=== PATIENT | female | born 1990 | race Caucasian/White ===

== ENCOUNTER 2016-05-10 20:39 | Inpatient (IN) | payer OTHER ==
[~2016-05-10] VITALS: Ht 175.3 cm; Wt 91.4 kg
[~2016-05-10 20:39] MED LIST: LABE100T PO; MAGN400C PO; PREN1TAB73 PO
[2016-05-10] MEDS ORDERED: D5LR 1,000 ML IV SCH (21:14)
[2016-05-10] MEDS ORDERED: ACETAMINOPHEN 500 MG TABLET PO PRN (21:15)
[2016-05-10] MEDS ORDERED: CALCIUM CARBONATE 500mg Chewable TAB PO PRN (21:15)
[2016-05-10] MEDS ORDERED: LIDOCAINE 1% (10mg/ml) 2ml SDV ID PRN (21:15)
[2016-05-10] MEDS ORDERED: MAG-AL + SIM LIQUID 30 ML UDC PO PRN (21:15)
--- OUTSIDE RECORDS SUMMARY | 2016-05-10 21:26 | XMS REPORT | Continuity of Care Document ---
Author Author [facility] Organization [facility] Address Unknown Phone Unavailable Support Name Relationship Address Phone Hernan Bonilla PRS [address] [address] [phone] Allergies, Adverse Reactions, Alerts Substance Reaction Severity Status No Known Drug Allergies Unknown Active Medications Medication Instructions Dosage Effective Dates (start - stop) Status Comments MULTIVITAMIN (unknown strength) - Active BIOTIN (unknown strength) - Active Excedrin Extra Strength 250 mg-250 mg-65 mg tablet - Active Problems Condition Effective Dates (start - stop) Clinical Status Suprvsn of preg w insufficient antenat care, first trimester - Infection oth prt genitl trct in , first trimester - Maternal care for excess growth, first trimester, unsp - Encntr for suprvsn of normal first preg, first trimester - 13 weeks gestation of - Secondary oligomenorrhea Pap Smear Screening, Cervix Irregular Bleeding Active Procedures Procedure Date Wet [place] For Infectious Agents Initial OB Visit No Charge - SPOKE MAKER OB Panel With An HIV Venpnctr fngr/heel/ear stick routne OB Prepayment Agreement Infct antign, chlamydia trac, ampl Neisseria Gonorrhoeae, Amplification Urine Culture Results Test Name Date and Time Measure Units Reference Range Abnormal Flag Comments Panel Description: Hepatitis B virus surface Ag [Presence] in Serum or Plasma by Immunoassay WHITE BLOOD CELL COUNT 14:25:00 9.0 Thousand/uL 3.8-10.8 N RED BLOOD CELL COUNT 14:25:00 3.71 Million/uL 3.80-5.10 L HEMOGLOBIN 14:25:00 11.2 g/dL 11.7-15.5 L HEMATOCRIT 14:25:00 33.0 % 35.0-45.0 L MCV 14:25:00 89.0 fL 80.0-100.0 N MCH 14:25:00 30.1 pg 27.0-33.0 N MCHC 14:25:00 33.9 g/dL 32.0-36.0 N RDW 14:25:00 13.1 % 11.0-15.0 N PLATELET COUNT 14:25:00 185 Thousand/uL 140-400 N MPV 14:25:00 8.6 fL 7.5-11.5 N ABSOLUTE NEUTROPHILS 14:25:00 6795 cells/uL 6271-9389 N ABSOLUTE LYMPHOCYTES 14:25:00 1575 cells/uL 850-3900 N ABSOLUTE MONOCYTES 14:25:00 540 cells/uL 200-950 N ABSOLUTE EOSINOPHILS 14:25:00 63 cells/uL 15-500 N ABSOLUTE BASOPHILS 14:25:00 27 cells/uL 0-200 N NEUTROPHILS 14:25:00 75.5 % N LYMPHOCYTES 14:25:00 17.5 % N MONOCYTES 14:25:00 6.0 % N EOSINOPHILS 14:25:00 0.7 % N BASOPHILS 14:25:00 0.3 % N ANTIBODY SCREEN, RBC W/REFL ID, TITER AND AG 14:25:00 NO ANTIBODIES DETECTED N Reference range No antibodies detected This assay is a screening test for the detection of red blood cell antibodies. The test is not to be used for pretransfusion screening or for the medical management of an alloimmunized . ABO GROUP 14:25:00 B RH TYPE 14:25:00 RH(D) POSITIVE RPR (DX) W/REFL TITER AND CONFIRMATORY TESTING 14:25:00 NON- REACTIVE NON-REACTIVE N HEPATITIS B SURFACE ANTIGEN 14:25:00 NON-REACTIVE NON- REACTIVE N RUBELLA ANTIBODY (IGG) 14:25:00 3.36 N Value Interpretation ----- < or= 0.90 Not consistent with Immunity 0.91-1.09 Equivocal > or=1.10 Consistent with Immunity The presence of rubella IgG antibody suggests immunization or past or current infection withrubella virus.Test performed at [facility] [place] [address]Tplovhxi: COREY LONDONO DO,MPH Panel Description: HIV 1/2 ANTIGEN/ANTIBODY,FOURTH GENERATION W/RFL HIV AG/AB, 4TH GEN 14:25:00 NON-REACTIVE NON-REACTIVE N HIV -1 antigen and HIV-1/HIV-2 antibodies were notdetected. There is no laboratory evidence of HIVinfection. PLEASE NOTE: This information has been disclosed toyou from records whose confidentiality may beprotected by state law. If your state requires suchprotection, then the state law prohibits you frommaking any further disclosure of the informationwithout the specific written consent of the personto whom it pertains, or as otherwise permitted by law.A general authorization for the release of medical orother information is NOT sufficient for this purpose. For additional information please refer tohttp:// education.[employer]/faq/CXX991(This link is being provided for informational/educational purposes only.) The performance of this assay has not been clinicallyvalidated in patients less than 2 years old. REPORT COMMENT: FASTING:NOTest performed at [facility] [facility] [address]Gtniafqy: COREY LONDONO DO,MPH Panel Description: CULTURE, URINE, ROUTINE CULTURE, URINE, ROUTINE 14:30:00 SEE NOTE CULTURE, URINE, ROUTINE MICRO NUMBER: [id number] TEST STATUS: FINAL SPECIMEN SOURCE: URINE, CLEAN CATCH SPECIMEN QUALITY: ADEQUATE RESULT: No GrowthREPORT COMMENT:RFASTING:UNKNOWNTest performed at [facility] [place] [address]Izrcmkyc: COREY LONDONO DO,MPH Panel Description: Chlamydia trachomatis DNA [Presence] in Unspecified specimen by Probe and target amplification method CHLAMYDIA TRACHOMATIS RNA, TMA 14:31:00 NOT DETECTED NOT DETECTED N NEISSERIA GONORRHOEAE RNA, TMA 14:31:00 NOT DETECTED NOT DETECTED N [id number] 14:31:00 SEE NOTE This test was performed using the APTIMA COMBO2 Assay([employer] The analytical performance characteristics of this assay, when used to test SurePath specimens havebeen determined by [employer]. REPORT COMMENT:FASTING:UNKNOWNTest performed at [facility] [id number] [place] [address]Jkunppvg: COREY LONDONO DO,MPH Advance Directives Directive Yes / No Effective Date File Name Unknown Encounters Encounter Description Practice Location Reason(s) For Visit Diagnoses Date Provider Care Team Members [facility], [address], [place], [place], [id number], [place] tel: [phone] Noam Suprvsn of preg w insufficient antenat care, first trimesterInfection oth prt genitl trct in , first trimesterMaternal care for excess growth, first trimester, unspEncntr for suprvsn of normal first preg, first [id number] weeks gestation of Mihai Alexandra. [address] [place] [address] [address], [place], [place], [id number], [place]. tel:[phone] [facility], [address], [place], [place], [address], [place] tel: [phone] Noam Secondary oligomenorrheaPap Smear Screening, Cervix Mihai [address] Ale[address] Hollis, [place], [place], [address], [place]. tel:[phone] Family History Family Member Diagnosis Age At Onset No family history of Kidney Disease No family history of Venous Thrombosis Paternal Grandfather Colon Cancer No family history of Thyroid Disorder Maternal Grandmother Cardiovascular Disease No family history of Uterine Cancer No family history of Pulmonary Embolism No family history of Breast Cancer No family history of Epilepsy No family history of Lung Disease No family history of Stroke No family history of Ovarian Cancer No family history of Hypertension No family history of Osteoporosis No family history of Diabetes Immunizations Vaccine Date Status Comments Unknown Payers Payer name Insurance type Covered democrat ID Authorization(s) [employer] CI [id number] Social History Type Description Quantity Date Captured Alcohol Use Details Caffeine Use Details coffee 2 cups per day Tobacco Use Status Never smoked tobacco Smoking Status Never smoker Vital Signs Date / Time: Height Weight BMI Pulse Rate Blood Pressure Temperature Respiratory Rate Body Surface Area Head Circumference BMI percentile /14:12:00 164.10 lbs 24.06 kg/meter(2) 132/75 mm[Hg] Chief Complaint And Reason For Visit Unknown Chief Complaint And Reason For Visit Reason For Referral Reason For Referral Unknown Plan Of Care Date Type Action Status Appointment Isabell Bonilla BOOKED Appointment Isabell Bonilla BOOKED Future Order: Lab Order Pap Smear With HPV Reflex If ASCUS ( [id number]) Ordered Date Type Problem Goal Intervention Status Start Date Unknown. History Of Present Illness Encounter Date Complaint History Of Present Illness This patient has no known history of present illness Functional Status Encounter Date Functional Assessment Cognitive Assessment Unknown Medications Administered Medication Instructions Dosage Effective Dates (start - stop) Status Comments Drug Treatment Unknown Instructions Date Instruction Additional Information OB Acog Docs HIV and other routine tests risk factors identified by history anticipated course of care nutrition and weight gain counseling, special diet toxoplasmosis precautions (cats / raw meat) sexual activity exercise indications for ultrasound influenza vaccine environmental / work hazards travel tobacco (ask, advise, assess, assist and arrange) alcohol illicit / recreational drugs use of any medications (including supplements, vitamins, herbs, OTC drugs) smoking counseling domestic violence seat belt use childbirth classes / hospital facilities hospital registration Nov-02-2016 genetic testing new ob handbook Zika virus assessment & precautions
--- OUTSIDE RECORDS SUMMARY | 2016-05-10 21:26 | XMS REPORT | Continuity of Care Document ---
Author Author [facility] Organization [facility] Address Unknown Phone Unavailable Support Name Relationship Address Phone Hernan Bonilla PRS [address] [address] [phone] Allergies, Adverse Reactions, Alerts Substance Reaction Severity Status No Known Drug Allergies Unknown Active Medications Medication Instructions Dosage Effective Dates (start - stop) Status Comments VITAMINS (unknown strength) take 1 tablet by oral route every day - Active labetalol 100 mg tablet take 1 tablet by oral route every day 100 MG - Active Problems Condition Effective Dates (start - stop) Clinical Status Supraventricular tachycardia - Encntr for suprvsn of normal first preg, second trimester - 27 weeks gestation of - Secondary oligomenorrhea Pap Smear Screening, Cervix Suprvsn of preg w insufficient antenat care, first trimester - Infection oth prt genitl trct in , first trimester - Maternal care for excess growth, first trimester, unsp - Encntr for suprvsn of normal first preg, first trimester - 13 weeks gestation of - Suprvsn of preg w insufficient antenat care, second tri - Encntr for suprvsn of normal first preg, second trimester - 17 weeks gestation of - Encntr for suprvsn of normal first preg, second trimester - 24 weeks gestation of - Encntr for suprvsn of normal first preg, third trimester - 30 weeks gestation of - Irregular Bleeding Active Procedures Procedure Date Unknown Results Test Name Date and Time Measure Units Reference Range Abnormal Flag Comments Unknown Advance Directives Directive Yes / No Effective Date File Name Unknown Encounters Encounter Description Practice Location Reason(s) For Visit Diagnoses Date Provider Care Team Members [facility], [address], [place], [id number], tel: [phone] Noam Encntr for suprvsn of normal first preg, third [id number] weeks gestation of Mihai Alexandra. [address] [place] [address] Ale[address] [place], [id number], [place]. tel:[phone] Referring Provider: Nasrin Paez [address] [place] [address] Dr [address], [place], [address] [place] [address]. tel:[phone] [facility] [address], [place], [id number], tel: [phone] Noam Mihai Alexandra. [address] [place] [address] [address], [place], [place], [address] [place] [address], [place]. tel:[phone] [facility] [address], [place], [address], [place] tel: [phone] Noam Supraventricular tachycardiaEncntr for suprvsn of normal first preg, second [id number] weeks gestation of Mihai Alexandra. [address] [place] [address] [address], [place], [place], [address], [place]. tel:[phone] [facility], [address], [place], [id number], [place] tel: [phone] Noam Mihai Alexandra. [address] [place] [address] [address], [place], [place], [address], [place]. tel:[phone] [facility] [address], [place], [address], [place] tel: [phone] Noam Encntr for suprvsn of normal first preg, second [id number] weeks gestation of Mihai Alexandra. [address] [place] [address] [address] [place], [address], [place]. tel:[phone] Referring Provider: Nasrin Paez [address] [place] [address] oNam Love [place], [id number]. tel:[phone] [facility], [address], [place], [place], [id number], [place] tel: [phone] Noam Ultrasound Suprvsn of preg w insufficient antenat care , second triEncntr for suprvsn of normal first preg, second [id number] weeks gestation of Holmannamaria Alexandra. [address] [place] [address] [address] , [place], [place], [id number], [place]. tel:[phone] [facility], [address], [place], [place], [address], [place] tel: [phone] Noam Suprvsn of preg w insufficient antenat care, first trimesterInfection oth prt genitl trct in , first trimesterMaternal care for excess growth, first trimester, unspEncntr for suprvsn of normal first preg, first [id number] weeks gestation of Holmannamaria Alexandra. [address] [place] [address] [address], [place], [place], [address], [place]. tel:[phone] [facility], [address], [place], [place], [address], [place] tel: [phone] Noam Secondary oligomenorrheaPap Smear Screening, Cervix Mihai Alexandra. [address] [place] [address] [address], [place], [place], [address], [place]. tel:[phone] Family History Family Member Diagnosis Age At [...] of Diabetes Immunizations Vaccine Date Status Comments Tdap completed Source: New Immunization Record Influenza, injectable, quadrivalent, preservative free, 3 yrs or older 2015 completed Source: New Immunization Record Payers Payer name Insurance type Covered green party ID Authorization(s) A[employer] Select CI [id number] A[employer] Select CI [id number] [employer] Select CI [id number] Social History Type Description Quantity Date Captured Unknown Vital Signs Date / Time: Height Weight BMI Pulse Rate Blood Pressure Temperature Respiratory Rate Body Surface Area Head Circumference BMI percentile Unknown Chief Complaint And Reason For Visit Unknown Chief Complaint And Reason For Visit Reason For Referral Reason For Referral Unknown Plan Of Care Date Type Action Status Appointment IreneIsabell ramos BOOKED Future Order: Lab Order Pap Smear With HPV Reflex If ASCUS ( [id number]) Ordered Future Order: Radiology Order Complete OB Ultrasound > 14 Weeks ( [id number]) Ordered Date Type Problem Goal Intervention Status [...] childbirth classes / hospital facilities hospital registration genetic testing new ob handbook Zika virus assessment & precautions
--- OUTSIDE RECORDS SUMMARY | 2016-05-10 21:26 | XMS REPORT | Continuity of Care Document ---
Author Author [facility] Organization [facility] Address Unknown Phone Unavailable Care Team Providers Care Broadcast Traffic Coordinator Name Role Phone Trell Torres MD Primary Care Physician Unavailable Allergies, Adverse Reactions, Alerts Substance Reaction Severity Status No Known Drug Allergies Unknown Active Medications Medication Instructions Dosage Effective Dates (start - stop) Status Comments magnesium 250 mg tablet one tablet BID for restless feet - Active labetalol 100 mg tablet take 1 tablet by oral route 2 times every day 100 MG - Active Prestidigitator Dr Sy IRON (unknown strength) take 1 tablet by oral route 2 times every day - Active VITAMINS (unknown strength) take 1 tablet by oral route every day - Active Problems Condition Effective Dates (start - stop) Clinical Status Encntr for suprvsn of normal first preg, third trimester - 36 weeks gestation of - Supraventricular tachycardia - Encntr for suprvsn of normal first preg, second trimester - 27 weeks gestation of - Supraventricular tachycardia - Encntr for suprvsn of normal first preg, third trimester - 32 weeks gestation of - Encntr for suprvsn of normal first preg, third trimester - 37 weeks gestation of - Secondary oligomenorrhea Pap Smear Screening, Cervix Suprvsn of preg w insufficient antenat care, first trimester - Encntr for suprvsn of normal first preg, first trimester - Infection oth prt genitl trct in , first trimester - Maternal care for excess growth, first trimester, unsp - 13 weeks gestation of - Suprvsn of preg w insufficient antenat care, second tri - Encntr for suprvsn of normal first preg, second trimester - 17 weeks gestation of - Encntr for suprvsn of normal first preg, second trimester - 24 weeks gestation of - Encntr for suprvsn of normal first preg, third trimester - 34 weeks gestation of - Encntr for suprvsn of normal first preg, third trimester - 38 weeks gestation of - 30 weeks gestation of - Encntr for suprvsn of normal first preg, third trimester - Irregular Bleeding Active Procedures Procedure Date OB Visit No Charge Cult, pathgnc orgnsm, screen Results Test Name Date and Time Measure Units Reference Range Abnormal Flag Comments Panel Description: STREPTOCOCCUS, GROUP B CULTURE STREPTOCOCCUS, GROUP B CULTURE 15:15:00 SEE NOTE STREPTOCOCCUS, GROUP B CULTURE MICRO NUMBER: [id number] TEST STATUS: FINAL SPECIMEN SOURCE: VAGINAL/ANORECTAL SPECIMEN QUALITY: ADEQUATE RESULT: No group B Streptococcus isolatedREPORT COMMENT:FASTING: UNKNOWNTest performed at [id number] [place] [address]Qmvbyevj: COREY LONDONO DO,MPH Advance Directives Directive Yes / No Effective Date File Name Unknown Encounters Encounter Description Practice Location Reason(s) For Visit Diagnoses Date Provider Care Team Members [facility], [address], [place], [place], [id number], [place] tel: [phone] Noam Encntr for suprvsn of normal first preg, third [id number] weeks gestation of Mihai [address], [place], [id number], [place]. tel:[phone] [facility], [address] [place] [address], [id number], [place] tel: [phone] Noam Encntr for suprvsn of normal first preg, third [id number] weeks gestation of Mihai Alexandra. [address] [place] [address] [address], [place], [address], [place]. tel:[phone] [facility], [address], [place], [address], [place] tel: [phone] Noam Encntr for suprvsn of normal first preg, third [id number] weeks gestation of Mihai Alexandra. [address] [place] [address] [address]is, [place], [address], [place]. tel:[phone] [facility], [address], [place], [address], [place] tel: [phone] Noam Encntr for suprvsn of normal first preg, third weeks gestation of Mihai Alexandra. [address] [place] [address] [address], [place], [place], [address], [place]. tel:[phone] [facility], [address], [place], [address], [place] tel: [phone] Noam Supraventricular tachycardiaEncntr for suprvsn of normal first preg, third [id number] weeks gestation of Mihai Alexandra. [address] [place] [address] [address], [place], [address], [place]. tel:[phone] [facility], [address], [place], [address], [place] tel: [phone] Noam 30 weeks gestation of pregnancyEncntr for suprvsn of normal first preg, third trimester Mihai Alexandra. [address] [place] [address] [address], [place], [address], [place]. tel:[phone] Referring Provider: Nasrin Paez [address] [place] [address] Dr Ovalle, [place], [address]. tel:[phone] [facility], [address], [place], [place], [address], [place] tel: [phone] Noam Supraventricular tachycardiaEncntr for suprvsn of normal first preg, second weeks gestation of Mihai Alexandra. [address] [place] [address] [address], [place], [place], [address], [place]. tel:[phone] [facility], [address], [place], [place], [address], [place] tel: [phone] Noam Encntr for suprvsn of normal first preg, second [id number] weeks gestation of Mihai Alexandra. [address] [place] [address] [address], [place], [place], [address], [place]. tel:[phone] Referring Provider: Nasrin Paez, [address] [place] [address] Dr [address], [place], [place], [address]. tel:[phone] [facility], [address], [place], [address], [place] tel: [phone] Noam Ultrasound Suprvsn of preg w insufficient antenat care , second triEncntr for suprvsn of normal first preg, second [id number] weeks gestation of Mihai Alexandra. [address] [place] [address] [address] , [place], [place], [address], [place]. tel:[phone] [facility], [address], [place], [place], [address], [place] tel: [phone] Noam Suprvsn of preg w insufficient antenat care, first trimesterEncntr for suprvsn of normal first preg, first trimesterInfection oth prt genitl trct in , first trimesterMaternal care for excess growth, first trimester, unsp13 weeks gestation of Mihai Alexandra. [address] [place] [address] [address], [place], [place], [address], [place]. tel:[phone] [facility], [address], [place], [place], [address], [place] tel: [phone] Noam Secondary oligomenorrheaPap Smear Screening, Cervix Mihai Alexandra. [address] [place] [address] [address], [place], [id number], [place]. tel:[phone] Family History Family Member Diagnosis Age At [...] Record Payers Payer name Insurance type Covered alliance party ID Authorization(s) Aetna Select CI [id number] A[employer] Select CI [id number] [employer] CI [id number] Social History Type Description Quantity Date Captured Alcohol Use Details Caffeine Use Details Unknown Tobacco Use Status Smoking Status Never smoker Vital Signs Date / Time: Height Weight BMI Pulse Rate Blood Pressure Temperature Respiratory Rate Body Surface Area Head Circumference BMI percentile 2:51 PM 197.50 lbs 28.91 kg/meter(2) 110/67 mm[Hg] 3:10 PM 197.54 lbs 28.92 kg/meter(2) 110/67 mm[Hg] Chief Complaint And Reason For Visit Unknown Chief Complaint And Reason For Visit Reason For Referral Reason For Referral Unknown Plan Of Care Date Type Action Status Appointment Isabell Bonilla BOOKED Future Order: Lab Order Pap Smear With HPV Reflex If ASCUS ( [id number]) Ordered Future Order: Radiology Order Complete OB Ultrasound > 14 Weeks ( [id number]) Ordered Date Type Problem Goal Intervention Status Start Date Unknown. History Of Present Illness Encounter Date Complaint History Of Present Illness This patient has no known history of present illness Functional Status Encounter Date Functional Assessment Cognitive Assessment Unknown Medications Administered Medication Instructions Dosage Effective Dates (start - stop) Status Comments Drug Treatment Unknown Instructions Date Instruction Additional Information labor signs group B strep screening OB Acog Docs HIV and other routine [...]
--- OUTSIDE RECORDS SUMMARY | 2016-05-10 21:27 | XMS REPORT | Continuity of Care Document ---
Author Author [facility] [place] [facility] [place] Address Unknown Phone Unavailable Support Name Relationship Address Phone Hernan Bonilla PRS [address] [address] [phone] Allergies, Adverse Reactions, Alerts Substance Reaction Severity [...] trimester - 24 weeks gestation of - Irregular Bleeding Active Procedures Procedure Date Unknown Results Test Name Date and Time Measure Units Reference Range Abnormal Flag Comments Unknown Advance Directives Directive Yes / No Effective Date File Name Unknown Encounters Encounter Description Practice Location Reason(s) For Visit Diagnoses Date Provider Care Team Members [facility], [address], [place], [place], [address], [place] tel: [phone] Noam Supraventricular tachycardiaEncntr for suprvsn of normal first preg, second weeks gestation of Mihai Alexandra. [address] [place] [address] Alec Hollis, [place], [place], [address], [place]. tel:[phone] [facility], [address], [place], [address], [place] tel: [phone] Noam Mihai Alexandra. [address] [place] [address] Alec Hollis, [place], [place], [address], [place]. tel:[phone] [facility] In [facility], [address], [place], [address], [place] tel: [phone] Noam Mihai Alexandra. [address] [place] [address] Alec Hollis, [place], [place], [address], [place]. tel:[phone] [facility] In [facility] [place], [address], [place], [address], [place] tel: [phone] Noam Encntr for suprvsn of normal first preg, second [id number] weeks gestation of Mihai Alexandra. [address] [place] [address] Alec Hollis, [place], [place], [address], [place]. tel:[phone] Referring Provider: Nasrin Paez [address] [place] [address] Dr Ovalle, [place], [place], [address]. tel:[phone] [facility] [place], [address], [place], [address], [place] tel: [phone] Noam Ultrasound Suprvsn of preg w insufficient antenat care , second triEncntr for suprvsn of normal first preg, second [id number] weeks gestation of Mihai Alexandra. [address] [place] [address] Alec Hollis , [place], [place], [address], [place]. tel:[phone] [facility] [place], [address], [place], [address], [place] tel: [phone] Noam Suprvsn of preg w insufficient antenat care, first trimesterInfection oth prt genitl trct in , first trimesterMaternal care for excess growth, first trimester, unspEncntr for suprvsn of normal first preg, first [id number] weeks gestation of Holmannamaria Alexandra. [address] [place] [address] Alec Hollis, [place], [place], [address], [place]. tel:[phone] [facility], [address], [place], [place], [address], [place] tel: [phone] Noam Secondary oligomenorrheaPap Smear Screening, Cervix Holm Nasrin. [address] [place] [address] Alec Hollis, [place], [place], [address], [place]. tel:[phone] Family History Family Member Diagnosis Age At [...] of Diabetes Immunizations Vaccine Date Status Comments Influenza, injectable, quadrivalent, preservative free, 3 yrs or older 2015 completed Source: New Immunization Record Payers Payer name Insurance type Covered libertarian ID Authorization(s) Aet[employer] Select CI [id number] Aet[employer] CI [id number] Social History Type Description Quantity Date Captured [...] Complete OB Ultrasound > 14 Weeks ( [address]48) Ordered Date Type Problem Goal Intervention Status [...]
--- OUTSIDE RECORDS SUMMARY | 2016-05-10 21:27 | XMS REPORT | Continuity of Care Document ---
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 [address] [place] [place] [address] Alec Hollis, [place], [place], [address], [place]. tel:[phone] [facility], [address], [place], [place], [address], [place] tel: [phone] Noam Supraventricular tachycardiaEncntr for suprvsn of normal first preg, third [id number] weeks gestation of Mihai Alexandra. [address] [place] [place] [address] Alec Hollis, [place], [place], [address], [place]. tel:[phone] [facility], [address], [place], [place], [address], [place] tel: [phone] Noam Encntr for suprvsn of normal first preg, third [id number] weeks gestation of Mihai Alexandra. [address] [place] [place] [address] Alec Hollis, [place], [place], [address], [place]. tel:[phone] Referring Provider: Nasrin Paez [address] [place] [address] Dr Ovalle, [place], [place], [address]. tel:[phone] [facility], [address], [place], [place], [address], [place] tel: [phone] Noam Supraventricular tachycardiaEncntr for suprvsn of normal first preg, second [id number] weeks gestation of Mihai Alexandra. [address] [place] [place] [address] Alec Hollis, [place], [place], [address], [place]. tel:[phone] [facility], [address], [place], [place], [address], [place] tel: [phone] Noam Mihai Alexandra. [address] [place] [place] [address] Alec Hollis, [place], [place], [address], [place]. tel:[phone] [facility], [address], [place], [place], [address], [place] tel: [phone] Noam Encntr for suprvsn of normal first preg, second [id number] weeks gestation of Mihai Alexandra. [address] [place] [address] Alec Hollis, [place], [place], [address], [place]. tel:[phone] Referring Provider: Nasrin Paez [address] [place] [address] Dr Ovalle, [place], [place], [address]. tel:[phone] [facility], [address], [place], [place], [address], [place] tel: [phone] Noam Ultrasound Suprvsn of preg w insufficient antenat care , second triEncntr for suprvsn of normal first preg, second [id number] weeks gestation of Mihai Alexandra. [address] [place] [address] Alec Hollis , [place], [place], [address], [place]. tel:[phone] [facility], [address], [place], [place], [address], [place] tel: [phone] Noam Suprvsn of preg w insufficient antenat care, first trimesterInfection ot prt genitl trct in , first trimesterMaternal care for excess growth, first trimester, unspEncntr for suprvsn of normal first preg, first [id number] weeks gestation of Mihai Alexandra. [address] [place] [address] Alec Hollis, [place], [place], [address], [place]. tel:[phone] [facility] [address], [place], [place], [address], [place] tel: [phone] Noam Secondary oligomenorrheaPap Smear Screening, Cervix [address] Alec Hollis [address], [place], [place], [address], [place]. tel:[phone] Family History Family Member Diagnosis Age At [...] Record Payers Payer name Insurance type Covered democrat ID Authorization(s) Aetna Select CI [id number] Aet[employer] Select CI [id number] A[employer] CI [id number] Social History Type Description Quantity Date Captured Alcohol Use Details Caffeine Use Details coffee 2 cups per day Tobacco Use Status Never smoked tobacco Smoking Status Never smoker Vital Signs Date / Time: Height Weight BMI Pulse Rate Blood Pressure Temperature Respiratory Rate Body Surface Area Head Circumference BMI percentile 4:55 PM 190.60 lbs 27.90 kg/meter(2) 133/69 mm[Hg] Chief Complaint And Reason For Visit Unknown Chief Complaint And Reason For Visit Reason For Referral Reason For Referral Unknown Plan Of Care Date Type Action Status Appointment Isabell Bonilla BOOKED Appointment Isabell Bonilla BOOKED Appointment Isabell Bonilla BOOKED Appointment Isabell Bonilla BOOKED Future Order: Lab Order Pap Smear With HPV Reflex If ASCUS ( [id number]) Ordered Future Order: Radiology Order Complete OB Ultrasound > 14 Weeks ( [id number]) Ordered Date Type Problem Goal Intervention Status [...]
--- OUTSIDE RECORDS SUMMARY | 2016-05-10 21:27 | XMS REPORT | Continuity of Care Document ---
Author Author [facility] Organization [facility] Address Unknown Phone Unavailable Support Name Relationship Address Phone Hernan Bonilla PRS [address] [place] [facility] [place] [address] [phone] Allergies, Adverse Reactions, Alerts Substance Reaction Severity Status No Known Drug Allergies Unknown Active Medications Medication Instructions Dosage Effective Dates (start - stop) Status Comments labetalol 100 mg tablet take 1 tablet by oral route every day 100 MG - Active MULTIVITAMIN (unknown strength) - Active BIOTIN (unknown strength) - Active Problems Condition Effective Dates (start - stop) Clinical Status Suprvsn of preg w insufficient antenat care, second tri - Encntr for suprvsn of normal first preg, second trimester - 17 weeks gestation of - Suprvsn of preg w insufficient antenat care, first trimester - Infection oth prt genitl trct in , first trimester - Maternal care for excess growth, first trimester, unsp - Encntr for suprvsn of normal first preg, first trimester - 13 weeks gestation of - Secondary oligomenorrhea Pap Smear Screening, Cervix Encntr for suprvsn of normal first preg, second trimester - 24 weeks gestation of - Irregular Bleeding Active Procedures Procedure Date Ultrasound exam of preg uterus, complete Results Test Name Date and Time Measure Units Reference Range Abnormal Flag Comments Unknown Advance Directives Directive Yes / No Effective Date File Name Unknown Encounters Encounter Description Practice Location Reason(s) For Visit Diagnoses Date Provider Care Team Members [facility], [address], [place], [id number], [place] tel: [phone] [place] Mihai Williamson [address] [place] [address] Alec Hollis, [place], [place], [address], [place]. tel:[phone] [facility] [address], [place], [address], [place] tel: [phone] Noam Encntr for suprvsn of normal first preg, second weeks gestation of Mihai Williamson [address] [place] [address] Alec Hollis, [place], [place], [address], [place]. tel:[phone] Referring Provider: Nasrin Paez [address] [place] [address] Dr Ovalle, [place], [place], [address]. tel:[phone] [facility], [address], [place], [address], [place] tel: [phone] Noam Ultrasound Suprvsn of preg w insufficient antenat care , second triEncntr for suprvsn of normal first preg, second [id number] weeks gestation of Mihai Alexandra. [address] [place] [address] Alec Hollis , [place], [place], [address], [place]. tel:[phone] [facility], [address], [place], [address], [place] tel: [phone] Noam Suprvsn of preg w insufficient antenat care, first trimesterInfection oth prt genitl trct in , first trimesterMaternal care for excess growth, first trimester, unspEncntr for suprvsn of normal first preg, first exftylbej55 weeks gestation of Mihai Alexandra. [address] [place] [address] Alec Hollis, [place], [place], [address], [place]. tel:[phone] Associates In [facility] [address], [place], [address], [place] tel: [phone] [place] Secondary oligomenorrheaPap Smear Screening, Cervix Mihai Williamson [address] [place] [address] Alec Hollis [place], [address], [place]. tel:[phone] Family History Family Member Diagnosis Age At [...] Covered democrat ID Authorization(s) Aet[employer] Select CI [id number] Aetna Select CI [id number] Social History Type Description Quantity Date Captured [...] Status Appointment Isabell Bonilla BOOKED Future Order: Radiology Order Complete OB Ultrasound > 14 Weeks ( [id number]) Ordered Future Order: Lab Order Pap Smear With [...]
--- OUTSIDE RECORDS SUMMARY | 2016-05-10 21:27 | XMS REPORT | Continuity of Care Document ---
Author Author [facility] Organization [facility] Address Unknown Phone Unavailable Care Team Providers Care Parole Hearing Officer Name Role Phone Trell Torres MD Primary [...] trimester - 34 weeks gestation of - Supraventricular tachycardia - Encntr for suprvsn of normal first preg, second trimester - 27 weeks gestation of - Supraventricular tachycardia - Encntr for suprvsn of normal first preg, third trimester - 32 weeks gestation of - Secondary oligomenorrhea Pap [...] trimester - 30 weeks gestation of - Encntr for suprvsn of normal first preg, third trimester - 36 weeks gestation of - Irregular Bleeding Active Procedures Procedure Date OB Visit No Charge Results Test Name Date and Time Measure Units Reference Range Abnormal Flag Comments Unknown Advance Directives Directive Yes / No Effective Date File Name Unknown Encounters Encounter Description Practice Location Reason(s) For Visit Diagnoses Date Provider Care Team Members [facility] [place], [address], [place], [address], tel: [phone] No[place] Encntr for suprvsn of normal first preg, third [id number] weeks gestation of Mihai Alexandra. [address] [place] [address] Alec Hollis, [place], [place], [address], [place]. tel:[phone] [facility] [place], [address], [place], [address], [place] tel: [phone] No[place] Encntr for suprvsn of normal first preg, third [id number] weeks gestation of Mihai Alexandra. [address] [place] [address] Alec Hollis, [place], [place], [address], [place]. tel:[phone] [facility] [place], [address], [place], [place], [address], [place] tel: [phone] Noam Supraventricular tachycardiaEncntr for suprvsn of normal first preg, third [id number] weeks gestation of Mihai Alexandra. [address] [place] [address] Alec Hollis, [place], [place], [address], [place]. tel:[phone] [facility] [place], [address], [place], [address], [place] tel: [phone] No[place] Encntr for suprvsn of normal first preg, third ojfafltqz15 weeks gestation of Mihai Alexandra. [address] [place] [address] Alec Hollis [place], [place], [address], [place]. tel:[phone] Referring Provider: Nasrin Paez [address] [place] [address] Dr Ovalle, [place], [place], [address]. tel:[phone] [facility], [address], [place], [place], [address], [place] tel: [phone] Noam Supraventricular tachycardiaEncntr for suprvsn of normal first preg, second weeks gestation of Mihai Alexandra. [address] [place] [address] Alec Hollis, [place], [place], [address], [place]. tel:[phone] [facility], [address], [place], [place], [address], [place] tel: [phone] No[place] Mihai Alexandra. [address] [place] [address] Alec Hollis, [place], [place], [address], [place]. tel:[phone] [facility], [address], [place], [place], [address], [place] tel: [phone] Noam Encntr for suprvsn of normal first preg, second [id number] weeks gestation of Mihai Alexandra. [address] [place] [address] Alec Hollis [place], [place], [address], [place]. tel:[phone] Referring Provider: Nasrin Paez [address] [place] [address] Dr Ovalle, [place], [place], [address]. tel:[phone] [facility], [address], [place], [place], [address], [place] tel: [phone] Noam Ultrasound Suprvsn of preg w insufficient antenat care , second triEncntr for suprvsn of normal first preg, second [id number] weeks gestation of Mhiai Alexandra. [address] [place] [address] Alec Hollis [place], [place], [address], [place]. tel:[phone] [facility], [address], [place], [place], [address], [place] tel: [phone] Noam Suprvsn of preg w insufficient antenat care, first trimesterInfection oth prt genitl trct in , first trimesterMaternal care for excess growth, first trimester, unspEncntr for suprvsn of normal first preg, first [id number] weeks gestation of Mihai Alexandra. [address] [place] [address] Alec Hollis, [place], [place], [address], [place]. tel:[phone] [facility], [address], [place], [place], [address], [place] tel: [phone] Noam Secondary oligomenorrheaPap Smear Screening, Cervix Mihai Alexandra. [address] [place] [address] Alec Hollis, [place], [place], [address], [place]. tel:[phone] Family History Family Member Diagnosis Age At [...] Record Payers Payer name Insurance type Covered republican ID Authorization(s) Aetna Select CI [id number] Aetna Select CI [id number] A[employer] Select CI [id number] Social History Type Description Quantity Date Captured Alcohol Use Details Caffeine Use Details coffee 2 cups per day Tobacco Use Status Never smoked tobacco Smoking Status Never smoker Vital Signs Date / Time: Height Weight BMI Pulse Rate Blood Pressure Temperature Respiratory Rate Body Surface Area Head Circumference BMI percentile 8:45 AM 196.40 lbs 28.75 kg/meter(2) 129/75 mm[Hg] Chief Complaint And Reason For Visit [...] Complete OB Ultrasound > 14 Weeks ( 77012) Ordered Date Type Problem Goal Intervention Status [...]
--- OUTSIDE RECORDS SUMMARY | 2016-05-10 21:27 | XMS REPORT | Continuity of Care Document ---
Author Author [facility] [place] Organization [facility] Address Unknown Phone Unavailable Support Name Relationship Address Phone Hernan Bonilla PRS [address] [address] [phone] Allergies, Adverse Reactions, Alerts Substance Reaction Severity [...] trimester - 24 weeks gestation of - Suprvsn of preg [...] trimester - 17 weeks gestation of - Irregular Bleeding Active Procedures Procedure Date Immuniz admnin, 1 vac, sngl/combo 19 Yrs + Flu Vaccine - Quadrivalent OB Visit No Charge Results Test Name Date and Time Measure Units Reference Range Abnormal Flag Comments Unknown Advance Directives Directive Yes / No Effective Date File Name Unknown Encounters Encounter Description Practice Location Reason(s) For Visit Diagnoses Date Provider Care Team Members [facility], [address], [place], [place], [address], [place] tel: [phone] [place] Mihai Alexandra. [address] [place] [address] Alec Hollis, [place], [place], [address], [place]. tel:[phone] [facility], [address], [place], [place], [address], [place] tel: [phone] No[place] Encntr for suprvsn of normal first preg, second [id number] weeks gestation of Mihai Alexandra. [address] [place] [address] Alec Hollis, [place], [address], [place]. tel:[phone] Referring Provider: Nasrin Paez, [address] [place] [address] Dr Ovalle, [place], [place], [address]. tel:[phone] [facility] [address], [place], [address], [place] tel: [phone] Noam Ultrasound Suprvsn of preg w insufficient antenat care , second triEncntr for suprvsn of normal first preg, second [id number] weeks gestation of Mihai Alexandra. [address] [place] [address] Alec Hollis , [place], [place], [address], [place]. tel:[phone] [facility], [address], [place], [place], [address], [place] tel: [phone] [place] Suprvsn of preg w insufficient antenat care, first trimesterInfection oth prt genitl trct in , first trimesterMaternal care for excess growth, first trimester, unspEncntr for suprvsn of normal first preg, first jdcnkuqrq19 weeks gestation of Mihai Alexandra. [address] [place] [address] Alec Hollis, [place], [address], [place]. tel:[phone] [facility], [address], [place], [address], [place] tel: [phone] No[place] Secondary oligomenorrheaPap Smear Screening, Cervix Mihai Alexandra. [address] [place] [address] Alec Hollis, [place], [place], [address], . tel:[phone] Family History Family Member Diagnosis Age At [...] Covered republican ID Authorization(s) A[employer] Select CI [id number] [employer] CI [id number] Social History Type Description Quantity Date Captured Alcohol Use Details Caffeine Use Details No Tobacco Use Status Smoking Status Never smoker Vital Signs Date / Time: Height Weight BMI Pulse Rate Blood Pressure Temperature Respiratory Rate Body Surface Area Head Circumference BMI percentile /13:37:00 172.10 lbs 25.19 kg/meter(2) 122/73 mm[Hg] Chief Complaint And Reason For Visit Unknown Chief Complaint And Reason For Visit Reason For Referral Reason For Referral Unknown Plan Of Care Date Type Action Status Appointment Isabell Bonilla BOOKED Future Order: Lab Order Pap Smear With HPV Reflex If ASCUS ( [id number]) Ordered Future Order: Radiology Order Complete OB Ultrasound > 14 Weeks ( [id number]) Ordered Date Type Problem Goal Intervention Status [...]
--- OUTSIDE RECORDS SUMMARY | 2016-05-10 21:27 | XMS REPORT | Continuity of Care Document ---
Author Author [facility] Organization [facility] Address Unknown Phone Unavailable Support Name Relationship Address Phone Hernan Bonilla PRS [address] [address] [phone] Allergies, Adverse Reactions, Alerts Substance Reaction Severity [...] trimester - 30 weeks gestation of - Supraventricular tachycardia - [...] admnin, 1 vac, sngl/combo 19 Yrs + TDAP VACCINE >7 IM OB Visit No Charge Results Test Name Date and Time Measure Units Reference Range Abnormal Flag Comments Unknown Advance Directives Directive Yes / No Effective Date File Name Unknown Encounters Encounter Description Practice Location Reason(s) For Visit Diagnoses Date Provider Care Team Members [facility] [address], [place], [place], [address], [place] tel: [phone] Noam Supraventricular tachycardiaEncntr for suprvsn of normal first preg, third [id number] weeks gestation of Mihai Alexandra. [address] [place] [address] Alec Hollis, [place], [place], [address], [place]. tel:[phone] [facility], [address], [place], [address], [place] tel: [phone] Noam Encntr for suprvsn of normal first preg, third [id number] weeks gestation of Mihai Alexandra. [address] [place] [address] Alec Hollis, [place], [place], [address], [place]. tel:[phone] Referring Provider: Nasrin Paez [address] [place] [address] Dr [address], [place], [place], [id number]. tel:[phone] [facility], [address], [place], [place], [address], [place] tel: [phone] Noam Supraventricular tachycardiaEncntr for suprvsn of normal first preg, second [id number] weeks gestation of Mihai Alexandra. [address] [place] [address] Alec Hollis, [place], [address], [place]. tel:[phone] [facility], [address], [place], [place], [address], [place] tel: [phone] Noam Mihai Alexandra. [address] [place] [address] Alec Hollis, [place], [place], [address], [place]. tel:[phone] [facility], [address], [place], [place], [address], [place] tel: [phone] Noam Encntr for suprvsn of normal first preg, second [id number] weeks gestation of Mihai Alexandra. [address] [place] [address] Alec Hollis, [place], [place], [address], [place]. tel:[phone] Referring Provider: Nasrin Paez, [address] [place] [address] Dr [address], [place], [place], [address]. tel:[phone] [facility], [address], [place], [place], [address], [place] tel: [phone] Noam Ultrasound Suprvsn of preg w insufficient antenat care , second triEncntr for suprvsn of normal first preg, second [id number] weeks gestation of Mihai Alexandra. [address] [place] [address] Alec Hollis , [place], [place], [address], [place]. tel:[phone] [facility], [address], [place], [place], [address], [place] tel: [phone] Noam Suprvsn of preg w insufficient antenat care, first trimesterEncntr for suprvsn of normal first preg, first trimesterInfection oth prt genitl trct in , first trimesterMaternal care for excess growth, first trimester, unsp13 weeks gestation of Mihai Alexandra. [address] [place] [address] Alec Hollis, [place], [place], [address], [place]. tel:[phone] [facility], [address], [place], [place], [address], [place] tel: [phone] [place] Secondary oligomenorrheaPap Smear Screening, Cervix Mihai Alexandra. [address] [place] [address] Alec Hollis, [place], [place], [address], [place]. tel:[phone] Family History Family Member Diagnosis Age At [...] Covered libertarian ID Authorization(s) [employer] Select CI [id number] Aet[employer] Select CI [id number] A[employer] Select CI [id number] Social History Type Description Quantity Date Captured Alcohol Use Details Caffeine Use Details Unknown Tobacco Use Status Smoking Status Never smoker Vital Signs Date / Time: Height Weight BMI Pulse Rate Blood Pressure Temperature Respiratory Rate Body Surface Area Head Circumference BMI percentile 4:15 PM 184.90 lbs 27.07 kg/meter(2) 131/70 mm[Hg] Chief Complaint And Reason For Visit Unknown Chief Complaint And Reason For Visit Reason For Referral Reason For Referral Unknown Plan Of Care Date Type Action Status Appointment Isabell Bonilla BOOKED Future Order: Lab Order Pap Smear With HPV Reflex If ASCUS ( [id number]) Ordered Future Order: Radiology Order Complete OB Ultrasound > 14 Weeks ( [id number]) Ordered Date Type Problem Goal Intervention Status [...]
--- OUTSIDE RECORDS SUMMARY | 2016-05-10 21:27 | XMS REPORT | Continuity of Care Document ---
Author Author [facility] Organization [facility] Address Unknown Phone Unavailable Support Name Relationship Address Phone Hernan Bonilla PRS [address] [address] [phone] Allergies, Adverse Reactions, Alerts Substance Reaction Severity [...] Procedures Procedure Date OB Visit No Charge Metabolic panel, basic Glucose test Hemoglobin count, colorimetric Hematocrit blood count Assay, blood magnesium Assay thyroid stimulating hormone Venpnctr fngr/heel/ear stick routne Results Test Name Date and Time Measure Units Reference Range Abnormal Flag Comments Panel Description: Magnesium [Mass/volume] in Serum or Plasma MAGNESIUM 16:38:00 1.8 mg/dL 1.5-2.5 N Test performed at [facility] [id number] [place] [address]Shqynrra: COREY LONDONO DO,MPH Panel Description: BASIC METABOLIC PANEL GLUCOSE 16:38:00 103 mg/dL 65-99 H Fasting reference interval UREA NITROGEN (BUN) 16:38:00 8 mg/dL 7-25 N CREATININE 16:38:00 0.60 mg/dL 0.50-1.10 N eGFR NON-AFR. NIGERIAN 16:38:00 128 mL/min/1.73m2 > OR=60 N eGFR 16:38:00 149 mL/min/1.73m2 > OR=60 N BUN/CREATININE RATIO 16:38:00 NOT APPLICABLE (calc) 6-22 SODIUM 16:38:00 137 mmol/L 135-146 N POTASSIUM 16:38:00 3.7 mmol/L 3.5-5.3 N CHLORIDE 16:38:00 106 mmol/L 98-110 N CARBON DIOXIDE 16:38:00 24 mmol/L 20-31 N CALCIUM 16:38:00 8.5 mg/dL 8.6-10.2 L Test performed at [facility] [address] [address]Flastwft: COREY LONDONO DO,MPH Panel Description: Glucose [Mass/volume] in Serum or Plasma --1 hour post 50 g glucose PO GLUCOSE, GESTATIONAL SCREEN (50G)-140 CUTOFF 16:38:00 91 mg/dL <140 N Test performed at [facility] [id number] [place] [address]Ypdgzsgz: COREY LONDONO DO,MPH Panel Description: HEMOGLOBIN + HEMATOCRIT HEMOGLOBIN 16:38:00 9.9 g/dL 11.7-15.5 L HEMATOCRIT 16:38:00 29.6 % 35.0-45.0 L Test performed at [facility] [address] [address]Spmwwebr: COREY LONDONO DO,MPH Panel Description: TSH W/REFLEX TO FT4 TSH W/REFLEX TO FT4 16:38:00 0.76 mIU/L N Reference Range > or=20 Years 0.40-4.50 Ranges First trimester 0.26-2.66 Second trimester 0.55-2.73 Third trimester 0.43-2.91REPORT COMMENT: FASTING:NOTest performed at [facility] [address] [address]Shzebifc: COREY LONDONO DO,MPH Advance Directives Directive Yes / No Effective Date File Name Unknown Encounters Encounter Description Practice Location Reason(s) For Visit Diagnoses Date Provider Care Team Members [facility], [address] [facility], [place], [address], tel: [phone] Noam Supraventricular tachycardiaEncntr for suprvsn of normal first preg, second [id number] weeks gestation of Holmannamaria Alexandra. [address] [place] [address] Aelc Hollis, [place], [place], [address], [place]. tel:[phone] [facility], [address], [place], [address], [place] tel: [phone] Noam Holmannamaria Alexandra. [address] [place] [address] Alec Hollis, [place], [place], [address], [place]. tel:[phone] [facility], [address], [place], [address], [place] tel: [phone] Noam Encntr for suprvsn of normal first preg, second iimbxhget49 weeks gestation of Mihai Alexandra. [address] [place] [address] Alec Hollis [place], [place], [address], [place]. tel:[phone] Referring Provider: Nasrin Paez[address], [place], [place], [address]. tel:[phone] [facility], [address], [place], [place], [address], [place] tel: [phone] Noam Ultrasound Suprvsn of preg w insufficient antenat care , second triEncntr for suprvsn of normal first preg, second [id number] weeks gestation of Mihai Alexandra. [address] [place] [address] Alec Hollis , [place], [place], [address], [place]. tel:[phone] [facility], [address], [place], [place], [address], [place] tel: [phone] Noam Suprvsn of preg w insufficient antenat care, first trimesterInfection oth prt genitl trct in , first trimesterMaternal care for excess growth, first trimester, unspEncntr for suprvsn of normal first preg, first [id number] weeks gestation of Mihai Alexandra. [address] [place] [address] Alec Hollis, [place], [place], [address], [place]. tel:[phone] [facility], [address], [place], [place], [address], [place] tel: [phone] Noam Secondary oligomenorrheaPap Smear Screening, Cervix Mihai Alexandra. [address] [place] [address] Alec Hollis, [place], [place], [address], [place]. tel:[phone] Family History Family Member Diagnosis Age At [...] Record Payers Payer name Insurance type Covered constitution party ID Authorization(s) Aetna Select CI [id number] A[employer] CI [id number] Social History Type Description Quantity Date Captured Alcohol Use Details Caffeine Use Details No Tobacco Use Status Smoking Status Never smoker Vital Signs Date / Time: Height Weight BMI Pulse Rate Blood Pressure Temperature Respiratory Rate Body Surface Area Head Circumference BMI percentile /15:49:00 180.10 lbs 26.36 kg/meter(2) 126/73 mm[Hg] Chief Complaint And Reason For Visit Unknown Chief Complaint And Reason For Visit Reason For Referral Reason For Referral Unknown Plan Of Care Date Type Action Status Appointment Isabell Bonilla BOOKED Future Order: Lab Order Pap Smear With HPV Reflex If ASCUS ( [id number]) Ordered Future Order: Radiology Order Complete OB Ultrasound > 14 Weeks ( [id number]) Ordered Date Type Problem Goal Intervention Status [...]
--- OUTSIDE RECORDS SUMMARY | 2016-05-10 21:27 | XMS REPORT | Continuity of Care Document ---
Author Author [facility] Organization [facility] Address Unknown Phone Unavailable Support Name Relationship Address Phone Hernan Bonilla PRS [address] [address] [phone] Allergies, Adverse Reactions, Alerts Substance Reaction Severity [...] Date Provider Care Team Members [facility], [address], [place], [place], [address], [place] tel: [phone] Noam Supraventricular tachycardiaEncntr for suprvsn of normal first preg, second [id number] weeks gestation of Mihai Alexandra. [address] [place] [address] [address]is [address], [place], [place], [address], [place]. tel:[phone] [facility], [address], [place], [place], [address], [place] tel: [phone] Noam Mihai Alexandra. [address] [place] [address] [address]c [address]is [address], [place], [place], [address], [place]. tel:[phone] [facility], [address], [place], [place], [address], [place] tel: [phone] Noam Encntr for suprvsn of normal first preg, second [id number] weeks gestation of Mihai Alexandra. [address] [place] [address] [address], [place], [place], [address], [place]. tel:[phone] Referring Provider: Nasrin Paez [address] [place] [address] [address], [place], [place], [address]. tel:[phone] [facility], [address], [place], [place], [address], [place] tel: [phone] Noam Ultrasound Suprvsn of preg w insufficient antenat care , second triEncntr for suprvsn of normal first preg, second weeks gestation of Mihai Alexandra. [address] [place] [address] [address]is [address] , [place], [place], [address], [place]. tel:[phone] [facility], [address], [place], [place], [address], [place] tel: [phone] Noam Suprvsn of preg w insufficient antenat care, first trimesterInfection oth prt genitl trct in , first trimesterMaternal care for excess growth, first trimester, unspEncntr for suprvsn of normal first preg, first ibudsarpo26 weeks gestation of Mihai Alexandra. [address] [place] [address] Alec Hollis, [place], [place], [address], [place]. tel:[phone] [facility], [address], [place], [place], [address], [place] tel: [phone] Noam Secondary oligomenorrheaPap Smear Screening, Cervix Holm Nasrin. [address] [place] [address] Alec Hollis, [place], [place], [address], [place]. tel:[phone] Family History Family Member Diagnosis Age At [...] green party ID Authorization(s) Aetna Select CI [id number] Aetna Select CI [id number] Social History Type Description Quantity Date Captured [...] Complete OB Ultrasound > 14 Weeks ( [id number]) Ordered Date Type Problem Goal Intervention Status [...]
[2016-05-10] MEDS: LR 1,000 ML IV PRN (21:40)
[2016-05-10 21:47] LABS: HCT - HEMATOCRIT 30.2 % (36-46); HGB - HEMOGLOBIN 9.5 GM/DL (12-16); MEAN CORPUSCULAR HGB 22.8 UUG (26-34); MEAN CORPUSCULAR HGB CONC(MCHC 31.5 GM/DL (31-37); MEAN CORPUSCULAR VOLUME 72.4 UM3 (80-100); MEAN PLATELET VOLUME 9.5 UM3 (9.4-12.4); RED BLOOD COUNT 4.17 M/MM3 (4.00-5.20); WBC - WHITE BLOOD COUNT 11.2 T/MM3 (4.5-11.0)
--- NOTE | 2016-05-10 22:34 | ANESOB ---
Epidural/ Date/Time DATE: 05/10/16 TIME: 22:32 Preop Diagnosis Procedure: Labor Epidural Plan: Epidural Height: 5 ' 9.00 " Weight: 91.400 kg BMI: kg/m2 P:0 Medications & Allergies Inpatient Medications Current Medications Medications (Trade) Dose Ordered Sig/Violet Start Time Stop Time Status Last Admin Dose Admin Lidocaine HCl 0.2 mg 0.2 mg PRN PRN 05/10/16 21:15 UNV Lactated Ringer's (Lactated Ringers) 1,000 ml @ 0 mls/hr Q0M PRN 05/10/16 21:03 UNV Acetaminophen (Tylenol Extra Strength) 1-2 TABS = 500-1,000 MG Q4H PRN 05/10/16 21:15 UNV Al Hydroxide/Mg Hydroxide (Maalox) 30 ml Q4H PRN 05/10/16 21:15 UNV Calcium Carbonate 1-2 TABS Q2H PRN 05/10/16 21:15 UNV Dextrose/Lactated Ringer's (D5lr) 1,000 ml @ 125 mls/hr Q8H 05/10/16 21:14 UNV Labetalol HCl (Labetalol HCl) 100 Mg Tablet, 1 TAB PO BID, (Reported) Last Taken: on 05/10/16 2100 Magnesium Oxide (Magnesium) 400 Mg Capsule, 250 MG PO BID, (Reported) Last Taken: on 05/10/16 0800 Pnv95/Ferrous Fumarate/FA ( Tablet) 1 Each Tablet, 1 TAB PO DAILY, (Reported) Last Taken: on 05/10/16 0800 Coded Allergies: latex (Verified Allergy, Severe, RASH, 04/23/16) Medical/Surgical History Anesthesia PMH: Denies: *Diabetes, Anesthesia Reactions, Malignant Hyperthermia Smoking Status: Never smoker Does patient use chewing tobac: No Second Hand Exposure: No Substance Use Type: does not use Alcohol Intake: none Last Drink: hours (ago) (6) Anesthesia Adverse Reactions: FOUND none Family Hx of Anesthesia Advers: none Hx of Motion Sickness: No Complications During : No Pertinent Findings Laboratory Tests 05/10/16 21:41 Physical Exam Respiratory: Lungs clear Cardiovascular: Regular rate, rhythm Airway Assessment Mallampati Score: I TMD: 3 Fingerbreadths Neck Extension: Good Overall Assessment: No Airway Concerns ASA: 2 Discussion Discussed risks/options/alternatives of anesthesia. Patient consents. Nursing pain assessment noted. Present for Discussion: Present: Spouse Attestation Statement Prior to the delivery of any anesthetic medication, I examined the patient, developed the plan, obtained the patient's consent and discussed the risk and benefits of the procedure with the patient/guardian. If the note happens to be signed after anesthesia start time, it is only due to providing efficient care of the patient and documenting at a time when the computer is available. BRIDGETTE ELLIOTT SAP ARCHITECT May 10, 2016 22:34
[2016-05-11] MEDS: LR 1,000 ML IV PRN ×2 (00:45→03:48)
[2016-05-11] MEDS ORDERED: LIDOCAINE 1% (10mg/ml) 30ml SDV ONE (01:59)
[2016-05-11] MEDS ORDERED: NALOXONE 0.4mg/ml INJECTION IV PRN ×2 (02:45→10:00)
[2016-05-11] MEDS ORDERED: DiphenhydrAMINE 50 MG/ML INJECTION IV PRN ×2 (02:45→10:00)
[2016-05-11] MEDS ORDERED: ROPIVACAINE 1% 200 MG, SUFENTANIL 50 MCG in NORMAL SALINE 80 ML EPI PRN (02:45)
[2016-05-11] MEDS ORDERED: ONDANSETRON 4mg/2ml INJECTION IV PRN ×2 (02:45→10:00)
[2016-05-11] MEDS ORDERED: FAMOTIDINE 20mg IVPB 50 ML IV ONE (09:15)
[2016-05-11] MEDS ORDERED: BUPIVACAINE 0.25% (2.5mg/ml) INJ 30ml SDV ONE (09:28)
[2016-05-11] MEDS ORDERED: MORPHINE SULFATE PF 5mg/10ml VL (DURAMORPH) ONE (09:46)
[2016-05-11] MEDS ORDERED: ONDANSETRON 4mg/2ml INJECTION ONE (09:50)
[2016-05-11] MEDS ORDERED: PROPOFOL 200mg 20 ML IV ONE (09:58)
[2016-05-11] MEDS ORDERED: METOCLOPRAMIDE 10mg/2ml INJECTION IV PRN (10:00)
[2016-05-11] MEDS ORDERED: NALBUPHINE 10mg/ml INJECTION IV PRN (10:00)
[2016-05-11] MEDS ORDERED: SALINE FLUSH 10ml SYRINGE ONE (10:12)
[2016-05-11] MEDS ORDERED: OXYTOCIN 30 UNIT in D5LR 500 ML IV SCH (10:23)
[2016-05-11] MEDS ORDERED: CALCIUM CARBONATE 500mg Chewable TAB PO PRN (10:30)
[2016-05-11] MEDS ORDERED: DiphenhydrAMINE 25 MG CAPSULE PO PRN (10:30)
[2016-05-11] MEDS ORDERED: ACETAMINOPHEN 500 MG TABLET PO PRN (10:30)
[2016-05-11] MEDS ORDERED: NS IV ONE (10:30)
[2016-05-11] MEDS ORDERED: AMPICILLIN 2 G in NORMAL SALINE 100 ML IV SCH (10:30)
[2016-05-11] MEDS ORDERED: GENTAMICIN IV ONE (10:30)
[2016-05-11] MEDS ORDERED: MILK OF MAGNESIA 30 ML SUSP PO PRN (10:30)
[2016-05-11] MEDS ORDERED: HYDROCORTISONE 2.5% CREAM 30 GM RECTALLY PRN (10:30)
[2016-05-11 10:55] VITALS: PULSE 135
[2016-05-11] MEDS: D5LR 1,000 ML IV SCH ×3 (10:58→23:57)
[2016-05-11] MEDS ORDERED: GENTAMICIN 100 ML IV ONE (11:15)
[2016-05-11] MEDS: IBUPROFEN 800 MG TABLET PO PRN ×2 (11:52→20:01)
--- NOTE | 2016-05-11 11:52 | OPNOTEPD ---
Operative Note Date of Operation Date of Operation: 05/11/16 General : 1 Para: 0 Gestation (Weeks): 40 Gestation (Days): 3 Preoperative Diagnosis Nonreassuring FHT Postoperative Diagnosis Same as preoperative dx Procedure Primary, Low-transverse Surgeon Michela Dang MD Medical Record Consultant Radha Cannon MD Anesthesia Anesthesia Provider: Eric Guzman CRNA Anesthesia Type: epidural Complications No Complications: No complications Estimated Blood Loss 700 cc Findings viable male, normal uterus, normal adenexa APGARS [place] Weight 4366 grams Name Carlos A Tejada Indications 25 year old at 40w3d who presented to Labor and Delivery with contractions and was found to be in active labor. On admission yesterday evening, she was dilated to 4 centimeters and progress to 9 centimeters without interventions after 8 hours. Artificial rupture of membranes was performed and patient subsequently progressed to completed dilation. Prior to pushing, heart rate, which had previously been category I, became category II for multiple late decelerations. We then started pushing with good maternal efforts in an attempt to expedite delivery. FHR dropped to 60s for a prolonged period of time after the first contraction and did not recover for 6 minutes. We stopped pushing to let FHR recover. However, it remained category II for repeated late decelerations so a C/S was called for non-reassuring heart tones. Plan of care was extensively discussed with patient and she agreed to proceed. Description of Procedure The patient was taken to the operating room where adequate anesthesia as described above was obtained. A Pfannenstiel skin incision was made and carried down to the fascia. The fascia was incised and the rectus muscles in the midline. The peritoneum was entered and incised superiorly and inferiorly taking care to avoid the bowel and bladder. A bladder blade was inserted and a bladder flap was created. A low transverse uterine incision was made as described above and the infant was delivered in the cephalic position. Mouth and nares were bulb suctioned, the cord was clamped and cut, and the was handed to the hookman. The placenta was delivered and the uterine cavity examined. The uterine incision was closed in a running-lock fashion with 0-monocryl suture. Hemostasis was confirmed. The bladder flap was then reapproximated with 2-0 chromic. The peritoneal layer was closed using 2- 0 vicryl suture. The fascia was closed with 0-vicryl suture and the subcutaneous tissue was reapproximated with 3-0 vicryl. The skin was closed with 0-monocryl in subcuticular fashion and a sterile dressing was applied. The patient was subsequently taken to the recovery room in satisfactory condition. Needle, sponge, and instrument counts were correct. MICHELA DANG MD May 11, 2016 11:50
[2016-05-11] MEDS: HYDROCODONE/APAP 5 mg/325 mg TABLET PO PRN ×2 (11:53→22:13)
[2016-05-11] MEDS ORDERED: CEFAZOLIN 2 GM in D5W 50ml 2 GM in D5W 50 ML IV ONE ×2 (12:15)
[2016-05-11] MEDS ORDERED: CITRIC ACID/SODIUM CITRATE 30 ML PO ONE (12:15)
[2016-05-11] MEDS: CLINDAMYCIN 900mg IVPB 50 ML IV SCH ×2 (12:19→20:02)
[2016-05-11] MEDS: SIMETHICONE 80 MG CHEWABLE TABLET PO CHEW SCH ×3 (13:00→22:13)
--- NOTE | 2016-05-11 14:55 | NUR ---
Shift Summary VSS. Lyn cath adequate output. Fundus firm scant to light lochia. Pain managed with oral pain meds. well x2. Parents providing baby cares. Pt has stood at side of bed post op. Significant other Cyrus at bedside and supportive.
--- NOTE | 2016-05-11 15:00 | NUR ---
Care Assumed Report from Carmelo Godwin RN. Care assumed.
[2016-05-11] MEDS: AMPICILLIN 2 G in NORMAL SALINE 100 ML IV SCH ×2 (16:32→22:13)
[2016-05-11] MEDS ORDERED: CLINDAMYCIN 900mg in D5W 50ml IV SCH (17:00)
--- NOTE | 2016-05-11 17:15 | NUR ---
Assessment Assessment WNL. Minimal bleeding. Rating pain 2/10 at this time. Refuses pain meds. Pitocin dc'd. D5LR infusing at 100 ml/hr. Ampicillin started as scheduled. Pt states she is very tired and would like to rest. SCDs on bilaterally. Denies nausea. in bassinet asleep. FOB at bedside. Discussed POC with pt. Encouraged to rest and call PRN.
[2016-05-11 17:26] VITALS: RESP 18; O2SAT 98
[2016-05-11] MEDS: GENTAMICIN IV SCH (18:58)
[2016-05-11] MEDS: NORMAL SALINE IV SCH (18:58)
[2016-05-11 19:00] VITALS: BP 116/68; PULSE 108; RESP 18; TEMP 97.8; O2SAT 98
--- NOTE | 2016-05-11 19:17 | NUR ---
Status VSS. Rating pain 4/10. Would like ibuprofen when it is due. Family at bedside. Denies needs at this time. Encouraged oral fluids. Pt verbalizes understanding.
[2016-05-11] MEDS: LABETALOL 100 MG PO SCH (21:00)
[2016-05-11 22:15] VITALS: BP 120/56; PULSE 106; RESP 18; TEMP 97.8; O2SAT 98
--- NOTE | 2016-05-11 23:38 | NUR ---
Activity RN assisted pt to BR. Ambulated without dizziness. Pad changed. Pericare and cath care provided. Teaching done on uterine infection and pericare. Pt verbalizes understanding. Pt put on own clothes. Self skin and oral care. Lyn to dependent drainage with small amount of light leslee urine. Encouraged pt to push fluids. H2O refilled and at bedside. Pt and FOB walk halls for about 10 mins. Pt states that she feels better after walking. Standing at bedside holding infant at this time. Denies needs. Instructed to call PRN.
[2016-05-12] VITALS (7 sets, daily range): BP systolic 112–125; BP diastolic 59–70; PULSE 84–101; RESP 14–18; TEMP 97.5–97.9; O2SAT 97–99
--- NOTE | 2016-05-12 00:40 | NUR ---
Status Pt back to bed. SCDs on bilaterally. Lyn to dependent drainage. Has taken 1200 ml of H2O po in last one hour to increase her fluid intake. Urine appears load out worker. Pt encouraged to keep drinking fluids. Had applesauce and cheese stick for a snack. Denies further needs. Lights dimmed. FOB at bedside. Encouraged to call PRN.
--- NOTE | 2016-05-12 00:56 | NUR ---
Chart Check 24 hour chart check completed
[2016-05-12] MEDS: GENTAMICIN IV SCH ×2 (02:38→11:08)
[2016-05-12] MEDS: NORMAL SALINE IV SCH ×2 (02:38→11:08)
--- NOTE | 2016-05-12 02:45 | NUR ---
Activity Pt up to BR for pad change. Output 950ml in 3 hours. Lyn catheter dc'd. Pt instructed to continue drinking fluids and attempt to void in 2 hours. Pt verbalized understanding. [place] given per request. Rating pain 7/10 when up and moving. VSS. H2O refilled. Denies further needs.
[2016-05-12] MEDS: HYDROCODONE/APAP 5 mg/325 mg TABLET PO PRN ×4 (03:02→22:13)
[2016-05-12] MEDS: CLINDAMYCIN 900mg IVPB 50 ML IV SCH ×2 (03:56→11:52)
[2016-05-12] MEDS: AMPICILLIN 2 G in NORMAL SALINE 100 ML IV SCH ×2 (04:40→10:25)
[2016-05-12 05:25] LABS: HCT - HEMATOCRIT 26.3 % (36-46); HGB - HEMOGLOBIN 8.2 GM/DL (12-16); MEAN CORPUSCULAR HGB 22.4 UUG (26-34); MEAN CORPUSCULAR HGB CONC(MCHC 31.2 GM/DL (31-37); MEAN CORPUSCULAR VOLUME 71.9 UM3 (80-100); MEAN PLATELET VOLUME 9.2 UM3 (9.4-12.4); RED BLOOD COUNT 3.66 M/MM3 (4.00-5.20); WBC - WHITE BLOOD COUNT 21.2 T/MM3 (4.5-11.0)
[2016-05-12] MEDS: IBUPROFEN 800 MG TABLET PO PRN ×2 (06:33→16:57)
--- NOTE | 2016-05-12 08:13 | PNPDOC ---
Progress Note PPD1 Rubella: Immune GBS: Negative Blood Type:B pos Subjective 05/12/16 Lochia: Moderate Pain: Controlled Voiding: Voiding Nausea and Vomiting: No Nausea/Vomiting Objective VSS AF. AF since 2:30 p.m. yesterday Vital Signs Date Time Temp Pulse Resp B/P Pulse Ox O2 Delivery O2 Flow Rate FiO2 05/12/16 06:30 97.5 92 14 114/61 97 05/12/16 03:00 Room Air General: Alert and Oriented Abdomen: Fundus Firm Incision: Clean/Dry/Intact Extremities: Non-tender Edema: None Assessment Primary C/S Plan Routine Care TRAVIS BERMUDEZ APRN May 12, 2016 08:13
[2016-05-12] MEDS: LABETALOL 100 MG PO SCH ×2 (09:00→22:16)
[2016-05-12] MEDS: SIMETHICONE 80 MG CHEWABLE TABLET PO CHEW SCH ×4 (09:00→22:16)
[2016-05-12] MEDS ORDERED: DOCUSATE CALCIUM 240 MG CAPSULE PO SCH (09:00)
--- NOTE | 2016-05-12 09:26 | ANESPO ---
Post-Op Note Date 05/12/16 Time: 09:25 Status Pt Participated in Evaluation: Pt participated in person Vital Signs Date Time Temp Pulse Resp B/P Pulse Ox O2 Delivery O2 Flow Rate FiO2 05/12/16 06:30 97.5 92 14 114/61 97 05/12/16 03:00 Room Air Respiratory Function: Airway patent Cardiovascular Function: Regular pulse Mental Status: Alert/oriented Pain Level Intensity: 7 (PATIENT UP WALKING AROUND) Hydration: Taking po fluids Complications during Recovery None apparent Follow-Up Instructions Instructions Per Surgeon VITA ANAYA CRNA May 12, 2016 09:26
--- NOTE | 2016-05-12 14:44 | NUR ---
SHIFT SUMMARY VSS. FUNDUS FIRM, LIGHT LOCHIA. D/C'D IV AND STOPPED ANTIBIOTICS PER DR. WANG. PAIN CONTROLLED WITH IBUPROFEN 800MG AND NORCO 5/325MG. PERFORMS SELF CARES. WELL X2. INCISION OPEN TO AIR AND WELL APPROXIMATED. BABY ROOMED IN AND CARE PROVIDED BY PATIENT.
[2016-05-12] MEDS: D5LR 1,000 ML IV SCH (16:23)
[2016-05-13 00:29] VITALS: BP 121/66; PULSE 92; RESP 16; TEMP 98; O2SAT 98
--- NOTE | 2016-05-13 01:47 | NUR ---
Shift Summary VSS, up ad jovi, showers and ambulates in dobson couple times this shift. Pain controlled with PO pain medication. Performing all self and cares with FOB at bedside. Appears to have a good support system. Plan discharge later today.
[2016-05-13] MEDS: HYDROCODONE/APAP 5 mg/325 mg TABLET PO PRN ×2 (02:06→06:18)
[2016-05-13] MEDS: IBUPROFEN 800 MG TABLET PO PRN (02:06)
[2016-05-13] MEDS ORDERED: HYDR-4246 PO (05:34)
[2016-05-13] MEDS ORDERED: DOCU240C40 PO (05:34)
[2016-05-13] MEDS ORDERED: IBUP-1547 PO (05:34)
[2016-05-13 06:25] VITALS: BP 123/70; PULSE 77; RESP 16; TEMP 97.9; O2SAT 96
--- NOTE | 2016-05-13 11:50 | NUR ---
CM THIS WORKER MET WITH PT ON THIS DATE SHE WAS LEAVING THE HOSPITAL. ALSO PRESENT WAS FOB. THIS WORKER INTRODUCED SELF AND ROLE OF CASE MANAGEMENT. PARENTS REPORTED THAT THEY HAVE FAMILY SUPPORT FROM EXTENDED FAMILY IF NEEDED. PARENTS REPORTED ALL NEEDS FOR BABY AT HOME. DENIES NEEDS FOR BABY. PARENTS ARE PLANNING TO RETURN FOR AND LAB ON 05/14/16. ENCOURAGED PARENTS TO THINK OF ANY NEEDS AND STATED THAT THIS WORKER WOULD BE AVAILABLE TOMORROW IF NEEDED. THIS WORKER PROVIDED CONTACT INFORMATION FOR PT AND ENCOURAGED TO CONTACT THIS WORKER WITH ANY NEEDS. PARENTS THANKFUL FOR THIS WORKER'S VISIT.
== END 2016-05-13 09:50 | disposition home or self-care (01) | DRG 765 ==
LOC: MC 20:39 → OBOBS 20:39 → MC 21:19
PROVIDERS: ADMIT Obstetrics & Gynecology; ATTEND Obstetrics & Gynecology
PROC: 10907ZC Drainage of Amniotic Fluid, Therapeutic from Products of Conception, Via Natural or Artificial Opening (ICD-10-PCS; 2016-05-11)
PROC: 10D00Z1 Extraction of Products of Conception, Low, Open Approach (ICD-10-PCS; principal; 2016-05-11 09:28)
DX: O76 Abnormality in fetal heart rate and rhythm complicating labor and delivery (principal); O41.1230 Chorioamnionitis, third trimester, not applicable or unspecified; O99.413 Diseases of the circulatory system complicating pregnancy, third trimester; I47.1 Supraventricular tachycardia; O62.1 Secondary uterine inertia; O48.0 Post-term pregnancy; O36.63X0 Maternal care for excessive fetal growth, third trimester, not applicable or unspecified; O32.8XX0 Maternal care for other malpresentation of fetus, not applicable or unspecified; O09.33 Supervision of pregnancy with insufficient antenatal care, third trimester; Z79.899 Other long term (current) drug therapy; O99.02 Anemia complicating childbirth; D64.9 Anemia, unspecified; Z3A.40 40 weeks gestation of pregnancy; Z37.0 Single live birth
CPT/HCPCS: 36415; 85027; 86850; 86870; 86900; 86901; 87070; 87147; 87205; 99464